=== PATIENT | male | born 1980 | race Caucasian/White ===

== ENCOUNTER 2021-03-08 02:06 | Emergency (ER) | payer OTHER, SELFPAY ==
--- NOTE | 2021-03-08 | ECG_ITS ---
Test Reason : CHEST PAIN Blood Pressure : / mmHG Vent. Rate : 090 BPM Atrial Rate : 090 BPM P-R Int : 140 ms QRS Dur : 096 ms QT Int : 336 ms P-R-T Axes : 065 -56 051 degrees QTc Int : 411 ms Normal sinus rhythm Incomplete right bundle branch block Left anterior fascicular block Abnormal ECG No previous ECGs available Referred By: Thalia Palacios Electronically Signed By:MADISON ROQUE
--- NOTE | ~2021-03-08 | XR_ITS ---
EXAMINATION: XR FOREARM, LEFT CLINICAL INFORMATION: left forearm abscess after iv cocaine injection, rule out fb COMPARISON: None TECHNIQUE: AP and lateral views of the left forearm were obtained. FINDINGS: The bones and soft tissues are normal. There is no radiopaque foreign body. There is no air in the soft tissues. No fracture. Imaged portions of the elbow and wrist are unremarkable. XR/XR forearm LT 2V IMPRESSION: Normal left forearm. There is no radiopaque foreign body.
[2021-03-08 02:15] VITALS: BP 118/70; PULSE 90; O2SAT 98
[2021-03-08 02:16] VITALS: BP 122/77; PULSE 80; RESP 20; TEMP 37; O2SAT 97; BMI 25.0
--- NOTE | 2021-03-08 02:17 | ED.SKABFB ---
HPI - Skin/Abscess/Foreign Bdy General Chief complaint: Skin/Abscess/Foreign Body Stated complaint: L ARM WOUND Time Seen by Provider: 03/08/21 02:14 Source: patient and EMS Mode of arrival: EMS Limitations: no limitations History of Present Illness HPI narrative: 40 years old male homeless, IV drug abuser, came in for evaluation of left forearm abscess after injecting IV cocaine 2 days ago. Patient declined any subjective fever, no chills. Related Data Previous Rx's Medication Instructions Recorded doxycycline hyclate 100 mg tablet 100 mg PO BID #20 tab 03/08/21 Allergies Allergy/AdvReac Type Severity Reaction Status Date / Time No Known Allergies Allergy Unverified 03/24/20 15:07 Review of Systems Review of Systems: All other systems are reviewed and are negative Constitutional: Reports as per HPI and Reports no additional constitutional complaints Eyes: Reports as per HPI and Reports no additional eye complaints Reports system reviewed and no additional complaints, except as documented Cardiovascular: Reports as per HPI and Reports no additional cardiovascular complaints Respiratory: Reports as per HPI and Reports no additional respiratory complaints Gastrointestinal: Reports as per HPI and Reports no additional gastrointestinal complaints Genitourinary: Reports no additional female genitourinary complaints Musculoskeletal: Reports no additional musculoskeletal complaints Skin/Breast: Reports system reviewed and no additional complaints, except as docu Psychiatric: Reports no additional psychiatric complaints Endocrine: Reports no additional endocrine complaints Hematologic/Lymphatic: Reports no additional hematologic/lymphatic complaints Allergic/Immunologic: Reports no additional allergic/immunologic complaints Reports system reviewed and no additional complaints, except as documented and Reports Abnormal speech present. [facility] Past Medical History Medical History (Updated 03/08/21 @ 02:50 by Thalia Palacios MD) Drug abuse Social History Social History Advance Directives: No Advance Directives Information Provided: No Physical Exam Vital Signs: Vital Signs: Last Vital Signs Temp 98.6 F 03/08/21 02:16 Pulse 80 03/08/21 02:16 Resp 20 03/08/21 02:16 BP 122/77 03/08/21 02:16 Pulse Ox 97 03/08/21 02:16 Body Mass Index 25.0 Vital signs have been reviewed as appeared to be correct. Blood pressure normal. Heart rate normal. Respiration rate normal. Temperature normal. Oxygen saturation normal. Appearance: Alert. Oriented X3. No acute distress. Head: Normal external exam. Normocephalic. Atraumatic. No Cho signs noted. No raccoon eyes noted Eyes: PERRLA. EOMI. Conjunctiva and sclera normal. Eyelids normal. ENT: TM's Normal. Pharynx normal. Uvula midline. Moist mucous membranes. No trismus noted. No drooling noted. No muffled voice noted. Neck: Normal inspection. Neck supple. FROM. No adenopathy. Thyroid Normal. No meningeal signs. No neck mass noted. CVS: Normal heart rate and rhythm. Heart sound normal. No murmurs noted. Pulses normal throughout. Respiratory: No respiratory distress. Painless inspiration. Breath sounds normal. No wheezes/rales/rhonchi noted. Chest nontender. No accessory muscle usage noted or decreased air movement noted. Abdomen: Soft and nontender. Bowel sounds normal in all 4 quadrants. No distention noted. No organomegaly noted. No visible injury noted. Back: No CVA tenderness. Full range of motion noted. Skin: Skin warm and dry. Normal skin color. Normal skin turgor. No rashes/lesions/lacerations noted. Extremities: Patient normally is right-handed, 2 x 2 area of fluctuation on the left forearm, upper part on the ulnar side surrounded by small area of erythema, and redness. Neuro: Oriented X 3. Cranial nerve exam: II-XII are grossly intact No motor deficit. No sensory deficit. Reflexes normal. Course Course Course Narrative: Assessment and plan. 40-year-old male history of IV drug abuser came in with left forearm small abscess, patient do not meet criteria for sepsis, patient has no place to go requesting to be hospitalized but unfortunately patient do not meet criteria for hospitalization or sepsis, I spoke with the patient about the importance of having the abscess I &D. patient adamantly refusing the I&D and would like to give antibiotic trial chance. Will start the patient on doxycycline, and provide the patient with list of long-term and detox places. Reevaluation(s) Reevaluation #1: Patient changes mind and willing to open the abscess, after injecting local anesthesia and small incision was done at abscess site he changes mind again does not want me to continue, patient would like to stay till morning because he has no place to go, patient now complaining of multiple complaints including chest pain, patient had EKG which showed no ST-T changes. Reevaluation #2: Patient is not complying with staff instruction, using abusive language, I had security personal at the bedside didn't feel safe with the patient's behavior, patient is refusing drawing blood and troponin claiming that he has a difficult IV access and not willing for the staff or me to look for IV to draw the blood. MDM - Skin/Abscess/Foreign Bdy Imaging Data Left forearm x-ray: Radiologist's impression: No foreign bodies, no osteomyelitis. ECG Data Interpretation: Normal sinus rhythm, 90 beats per minutes, left axis deviation, incomplete right bundle branch block, no acute ST-T changes. Discharge Plan Discharge Clinical Impression: Abscess of skin or subcutaneous tissue Qualifiers: Site of cutaneous abscess: extremity Site of cutaneous abscess of extremity: upper extremity Laterality: left Qualified Code(s): L02.414 - Cutaneous abscess of left upper limb Cellulitis Qualifiers: Site of cellulitis: extremity Site of cellulitis of extremity: upper extremity Laterality: left Qualified Code(s): L03.114 - Cellulitis of left upper limb Patient Disposition: Home, Self-Care Instructions: Abscess (ED) Additional Instructions: Seek immediate medical attention if develop any fever, chills, no improvement and the left forearm infection, avoid injecting IV drugs. Prescriptions: New doxycycline hyclate 100 mg tablet 100 mg PO BID Qty: 20 RF: 0 Interventions: ED Discharge Assessment Last Done: 03/08/21 03:48
[2021-03-08] MEDS: Lidocaine HCl 1 % MPF 5 ML VIAL SUBCUT (02:23)
--- NOTE | 2021-03-08 03:53 | PC.NURSE ---
Pt has a abscess to the left upper arm, when the provider saw the pt he mentioned that he was homeless and used herion yesterday, yet pt eyes are red, pt falling asleep. pt states that he has not slept in days. pt was trying to delay the procedure due to he wanted to sleep longer. the provider was very generous and allowed the pt to void, get some rest and pt insisted that he is treated with his antibx first and would not allow the provider to administer the lidocain. antibx given and then the pt states he was not ready yet and needed to sleep more. pt was given orange juice, warm blanket, teaching on the reason his arm was in pain and the need to have it drained. Pt was moving his legs and arms so security was called at the request of the provider. pt refused any more injections with the lidocaine and told the provider to just make the incision. pt then began to move around and the provider and nurse where in danger of being stuck. pt told if he didnt sit still then we could not proceed. pt states that he did not want to proceed. procedure stopped and ekg taken due to pt using drugs. pt was discharged and told he was going to be given a list of detox and shelters. pt belonging given back to him. Security did review the bags contents on arrival due to ems stated they saw needles.
== END 2021-03-08 03:30 | disposition home or self-care (01) ==
LOC: HO.ED 03:11
PROVIDERS: Emergency Provider Emergency Medicine
DX: L02.414 Cutaneous abscess of left upper limb (principal); L03.114 Cellulitis of left upper limb; F19.10 Other psychoactive substance abuse, uncomplicated
CPT/HCPCS: 73090; 93005; 99283

== ENCOUNTER → 2021-10-23 11:36 | Outpatient (REF) | payer OTHER, SELFPAY ==
--- NOTE | 2021-10-23 11:42 | ECG_ITS ---
Test Reason : METHADONE, QTC PROLONG Blood Pressure : / mmHG Vent. Rate : 066 BPM Atrial Rate : 066 BPM P-R Int : 140 ms QRS Dur : 092 ms QT Int : 408 ms P-R-T Axes : 068 -58 044 degrees QTc Int : 427 ms Normal sinus rhythm Left anterior fascicular block Abnormal ECG When compared with ECG of 08-MAR-2021 03:41, Incomplete right bundle branch block is no longer Present Referred By: Judy Montejo Electronically Signed By:MURRAY DAWKINS MD
== END ==
LOC: HO.CARD 11:36
PROVIDERS: Visit Provider Family Medicine
DX: Z79.899 Other long term (current) drug therapy (principal)
CPT/HCPCS: 93005

== ENCOUNTER 2023-01-08 11:44 | Emergency (ER) | payer MEDICAID, SELFPAY ==
[2023-01-08 11:52] VITALS: BP 147/88; PULSE 77; RESP 16; TEMP 36.6; O2SAT 96; BMI 31.2
--- NOTE | 2023-01-08 11:52 | ED.GENADULT ---
HPI - General Adult General Chief complaint: General Medical Stated complaint: Needs methadone dose Time Seen by Provider: 01/08/23 11:57 Source: patient, RN notes reviewed and old records reviewed Mode of arrival: ambulatory History of Present Illness HPI narrative: 42-year-old male with past medical history of substance abuse currently on methadone presenting to ED requesting methadone dose as clinic is closed today due to holiday. Patient states he obtains 13 doses of his methadone from the clinic, last dose taken yesterday, take 40 mg daily. Presented to ED with dated/labeled bottles. Denies symptoms at present, denies SI/HI Onset (ago): hour(s) Related Data Previous Rx's Medication Instructions Recorded doxycycline hyclate 100 mg tablet 100 mg PO BID #20 tabs 03/08/21 Allergies Allergy/AdvReac Type Severity Reaction Status Date / Time No Known Allergies Allergy Unverified 01/08/23 11:55 Review of Systems Review of Systems: Constitutional:No Fever, No Chills ENT/Mouth: No Ear Pain, No Nasal Congestion,No sore throat Cardiovascular: No Chest Pain, No SOB Respiratory: No Cough, No Wheezing Gastrointestinal: No Nausea, No Vomiting, No Diarrhea, No Constipation, No Abdominal pain Genitourinary: No Dysuria, No Urinary Frequency, No Hematuria Musculoskeletal: No joint pain, No Myalgias, No Joint Swelling Skin: No Skin Lesions, No rash Neuro: No Weakness Psych: No SI/HI Yes all other systems are reviewed and are negative Constitutional: Constitutional: Reports as per [facility] Past Medical History Attestation statement: The following information was validated with the patient. Source: old records reviewed Medical History Drug abuse Social History Social History Advance Directives: No Advance Directives Information Provided: No Physical Exam ED Vital Signs: BMI result Body Mass Index 31.2 Const General: cooperative, healthy appearing and no acute distress Orientation/consciousness: patient oriented x3 Limitations: no limitations HENMT Head: Yes normal to inspection and Yes atraumatic Ears: hearing grossly normal bilaterally General nose exam: Normal external nose present Face and sinus: Yes normal facial exam Eyes General: appearance normal, both eyes and all related structures EOM: EOMs intact bilaterally Neck Neck: Yes normal visual inspection and Yes no meningeal signs Resp Effort & Inspection: normal respiratory effort and no respiratory distress Cardio Rate: regular rate Skin Rashes: no rashes Wounds: no wounds Neuro General: patient oriented x3, tone normal and no meningeal signs Gait exam (Neuro): Normal gait present Extrem General: Yes normal to inspection Medications Administered Discontinued Medications Generic Name Dose Route Start Last Admin Trade Name Ashley PRN Reason Stop Dose Admin Methadone HCl 40 mg 01/08/23 11:58 01/08/23 12:12 Methadone Hcl 20 Mg/2 Ml Oral.Conc PO 01/08/23 11:59 40 mg ONCE ONE Administration Medical Decision Making Medical Decision Making MDM Narrative: 42-year-old male with past medical history of substance abuse currently on methadone presenting to ED requesting methadone dose as clinic is closed today due to holiday. On exam vital signs stable, and, nontoxic appearing. Patient presented to ED with 13 labeled bottles with last dose being yesterday, 40 mg. Will give dose of 40 mg of methadone today as well as last dose letter, patient will follow-up in clinic tomorrow Results discussed with patient including worrisome signs and symptoms and strict return precautions, and when to return to the emergency department. They verbalized understanding and feel safe for discharge at this time. Differential Diagnosis Differential Diagnoses: The differential diagnosis associated with the presentation includes As above External Record Review External record reviewed: Inpatient record, Office record, Outpatient record, Prior outpatient labs, Prior outpatient radiology, Primary care record and Outside ED record Tests considered The following testing was considered but not selected: As above Discharge Plan Discharge Clinical Impression: Medication refill Patient Disposition: Home, Self-Care Instructions: Medicine Refill (ED) Additional Instructions: please follow up in the clinic tomorrow for remaining doses of your methadone Prescriptions: No Action doxycycline hyclate 100 mg tablet 100 mg PO BID Qty: 20 0RF Referrals: Physician,None [Physician] - 2 days Interventions: ED Discharge Assessment Last Done: 01/08/23 12:19 Discharge Date/Time: 01/08/23 12:20
== END 2023-01-08 12:20 | disposition home or self-care (01) ==
PROVIDERS: Emergency Provider Emergency Medicine Emergency Medical Services
DX: F19.10 Other psychoactive substance abuse, uncomplicated (principal)
CPT/HCPCS: 99282; 99283

== ENCOUNTER 2023-02-19 15:43 | Outpatient (REF) | payer MEDICAID, SELFPAY ==
[2023-02-19 17:22] LABS: MANUAL DIFF FLAG NO
[2023-02-19 17:29] LABS: Basophils Percent Auto 0.5 % (0-2); Eosinophils Absolute Auto 0.3 X10*3/uL (0.0-0.4); Eosinophils Percent Auto 3.2 % (0-4); Hematocrit 42.7 % (42.0-52.0); Hemoglobin 14.3 g/dl (14.0-18.0); Imm Gran Abs Auto 0.02 X10*3/uL (0.00-0.03); Imm Gran Pct Auto 0.2 % (0.0-0.4); Lymphocytes Absolute Auto 2.4 X10*3/uL (1.2-4.9); Lymphocytes Percent Auto 26.8 % (20-40); Mean Corpuscular HGB Conc 33.5 g/dl (31.0-36.0); Mean Corpuscular Hemoglobin 28.9 pg (27.0-33.0); Mean Corpuscular Volume 86.4 fL (80.0-98.0); Mean Platelet Volume 10.2 fL (9.4-12.4); Monocytes Absolute Auto 0.6 X10*3/uL (0.1-1.2); Monocytes Percent Auto 6.7 % (2-11); Neutrophils Absolute Auto 5.5 x10*3/uL (2.0-8.3); Neutrophils Percent Auto 62.6 % (45-73); Platelet Count 192 X10*3/uL (160-400); Red Blood Count 4.94 X10*6/uL (4.60-5.80); Red Cell Distribution Width 12.4 % (11.0-16.0); White Blood Count 8.8 X10*3/uL (4.8-10.8)
[2023-02-19 17:36] LABS: D Dimer High Sensitivity 186 NG/ML
[2023-02-19 17:53] LABS: Alanine Aminotransferase 56 U/L (0-40); Albumin Level 3.7 g/dL (3.5-5.0); Alkaline Phosphatase 70 U/L (39-117); Anion Gap 13 (12-20); Aspartate Amino Transferase 80 U/L (5-37); Bilirubin Total 0.6 mg/dL (0.0-1.0); Blood Urea Nitrogen 9 mg/dL (9-16); Calcium 9.2 mg/dL (8.4-10.2); Carbon Dioxide 28 mmol/L (22-29); Chloride 103 mmol/L (96-108); Estimated Glomerular Filt Rate > 60; Glucose Random 100 mg/dL (60-115); Potassium 3.7 mmol/L (3.3-5.1); Sodium 140 mmol/L (135-145); Total Protein 6.8 g/dL (6.5-8.0)
[2023-02-20 03:45] LABS: ~HepC Num1 13.13 S/CO (0.00-0.79); ~Hepatitis C Antibody Reactive (Nonreactive)
== END 2023-02-19 15:44 | disposition home or self-care (01) ==
LOC: HO.HHCL 15:43
PROVIDERS: Visit Provider General Practice
DX: B18.2 Chronic viral hepatitis C (principal); M79.89 Other specified soft tissue disorders; R23.8 Other skin changes
CPT/HCPCS: 36415; 80053; 85025; 85379; 86803

== ENCOUNTER 2023-04-03 18:23 | Outpatient (REF) | payer MEDICAID, SELFPAY | END 2023-04-03 18:24 | disposition home or self-care (01) | LOC: HO.HHCLNP 18:23 | PROVIDERS: Visit Provider Emergency Medicine | DX: L02.412 Cutaneous abscess of left axilla (principal) | CPT/HCPCS: 87070; 87073; 87077; 87186; 87205 ==

== ENCOUNTER 2024-01-26 05:01 | Emergency (ER) | payer MEDICAID, SELFPAY ==
--- NOTE | 2024-01-26 05:05 | ED_ITS ---
HPI - Overdose General Chief Complaint: Overdose Stated Complaint: OD Time Seen by Provider: 01/26/24 05:01 Source: patient and old records reviewed Mode of arrival: EMS Limitations: other (poor historian) History of Present Illness ED Provider: CLAU GUTIÉRREZ Narrative: 43 yo male with PMH of opiate use disorder just seen here and dosed with methadone 40mg on 01/08. He was found overdosed with agonal respirations and bagged by Fire given 4mg IN. He was awake and alert and oriented with EMS x 3. He initially stated it was a seizure but then when I told him we dosed him with methadone on January 08 he started to calm down and states he will stay for a little bit take narcan to go. He denies SI. He does not want SUDE eval of detox. 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) How Overdose Was Discovered: other (girlfriend called 911?) Context: Accidental Overdose: uncertain what happened Treatments Prior to Arrival: narcan (4mg IN) Related Data Previous Rx's ?Medication ?Instructions ?Recorded doxycycline hyclate 100 mg tablet 100 mg PO BID #20 tabs 03/08/21 cephalexin 500 mg capsule 500 mg PO QID 7 days #28 caps 01/26/24 doxycycline hyclate 100 mg capsule 100 mg PO BID 7 days #14 caps 01/26/24 Allergies Allergy/AdvReac Type Severity Reaction Status Date / Time No Known Allergies Allergy Verified 01/26/24 05:13 Review of Systems Review of Systems: ROS unable to be obtained due to patient not being cooperative fully [facility] Past Medical History Attestation statement: The following information was validated with the patient. Source: old records reviewed Medical History Drug abuse Social History Social History (Updated 01/26/24 @ 05:13 by Mary Ann Kirkland DO) Patient Tobacco Use Status: Current someday Tobacco user Substance Use Type: Opiates Advance Directives: No Advance Directives Information Provided: No Physical Exam Vital Signs: Vital Signs: Last Vital Signs Temp 97.8 F 01/26/24 05:11 Pulse 88 01/26/24 05:11 Resp 16 01/26/24 05:11 BP 132/85 01/26/24 05:11 Pulse Ox 97 07/21/24 05:11 O2 Del Method Room Air 01/26/24 05:11 BMI result Body Mass Index 27.5 Appearance: Alert. Oriented X3. No acute distress. yawning, states he is cold Eyes: Pupils equal, round and reactive to light. dilated ENT: Pharynx normal. atraumatic Neck: Normal inspection. Neck supple. CVS: Normal heart rate and rhythm. Pulses normal. Respiratory: No respiratory distress. Breath sounds normal. Abdomen: Soft and non-tender. Skin: Skin warm and dry. Normal skin color. Extremities: No lower extremity edema. anterior shins bilateral mild erythema mild warmth no crepitus no fluctuance not circumferential no track ferrer noted no open wounds or track ferrer, has healed linear scrape R anterior llanos Neuro: Oriented X 3. No motor deficit. No sensory deficit. Course Course Course Narrative: observed for 1 hour wants to leave stable for DC Reevaluation(s) Reevaluation #1: on discharge asked me to look at his legs and now that he is more awake he wants juice on both legs mild erythema and warmth no crepitus no fluctuance. will start on cephelaxin and doxy he only wants filled at [facility] aware it will not be open until tomorrow Medications Administered Discontinued Medications Generic Name Dose Route Start Last Admin Trade Name Ashley PRN Reason Stop Dose Admin Cephalexin HCl 500 mg 01/26/24 06:14 01/26/24 06:18 Cephalexin 500 Mg Capsule PO 01/26/24 06:15 500 mg ONCE ONE Administration Doxycycline Monohydrate 100 mg 01/26/24 06:14 01/26/24 06:18 Doxycycline Monohydrate 100 Mg Capsule PO 01/26/24 06:15 100 mg ONCE ONE Administration Naloxone HCl 8 mg 01/26/24 05:09 01/26/24 06:18 Naloxone Hcl Nasal Take Home 4 Mg [place] NOSTRILALT 01/26/24 05:10 8 mg ONCE ONE Administration Medical Decision Making Medical Decision Making [facility] Narrative: 43 yo male with PMH of opiate use disorder here with c/o overdose given narcan by EMS he refuses SUDE eval or detox agrees to narcan - no labs or EKG. He has no signs of head trauma. He agrees to stay for a little bit though I anticipate he might try to walk out AMA. He has no signs of trauma. I offered assistance given we just dosed him with methadone but he is refusing all help at this time. He is awake alert and oriented x 3. No SI. Mild cellulitis on both shins on arrival he isn't really happy to be here may change his mind about treatments area is amenable to oral antibiotics. Differential Diagnosis Differential Diagnoses: The differential diagnosis associated with the presentation includes opiate use disorder with accidental overdose cellulitis Admission/Observation Consideration of admission/observation: Escalation of care including admission/observation considered no need for repeat narcan he is stable for DC Independent Historian Clinical information obtained from an independent historian. History obtained from or confirmed by: EMS External Record Review External record reviewed: Inpatient record Prescription Management I considered prescription management with: Antibiotic and Other (narcan to go) Discharge Plan Discharge Clinical Impression: Accidental overdose, Cellulitis Patient Disposition: Home, Self-Care Instructions: Cellulitis (ED), Adult Overdose (ED) Additional Instructions: carry narcan with you at all times if you decide you need help we have ways to assist you in your recovery you can return at any time finish antibiotics return for worsening swelling or any other concerns. Prescriptions: New doxycycline hyclate 100 mg capsule 100 mg PO BID 7 Days Qty: 14 0RF cephalexin 500 mg capsule 500 mg PO QID 7 Days Qty: 28 0RF No Action doxycycline hyclate 100 mg tablet 100 mg PO BID Qty: 20 0RF Print Language: Swedish
[2024-01-26 05:11] VITALS: BP 132/85; BP 148/104; PULSE 77; PULSE 88; RESP 16; TEMP 36.6; O2SAT 97; BMI 27.5
--- NOTE | 2024-01-26 05:13 | PC.NURSE ---
pt refusing to change into hospital clothes. pt thoroughly searched by security no weapons or smoking contraband found on pt. pt resting comfortably in stretcher resp even and unlabored axox4. per MD pt to be observed and d/c with take home narcan. pt refusing detox.
[2024-01-26] MEDS: cephALEXin 500 MG CAPSULE PO (06:18)
[2024-01-26] MEDS: Naloxone HCl Nasal TAKE HOME 4 MG SPRAY 8 MG NOSTRILALT (06:18)
[2024-01-26] MEDS: Doxycycline Monohydrate 100 MG CAPSULE PO (06:18)
[2024-01-26 06:37] VITALS: BP 132/85; PULSE 88; RESP 16; TEMP 36.6; O2SAT 97
== END 2024-01-26 06:38 | disposition home or self-care (01) ==
PROVIDERS: Emergency Provider Emergency Medicine
DX: T40.2X1A Poisoning by other opioids, accidental (unintentional), initial encounter (principal); L03.116 Cellulitis of left lower limb; L03.115 Cellulitis of right lower limb; Y92.89 Other specified places as the place of occurrence of the external cause; F17.200 Nicotine dependence, unspecified, uncomplicated; Z79.899 Other long term (current) drug therapy
CPT/HCPCS: 99282; 99284

== ENCOUNTER 2024-04-03 08:19 | Emergency (ER) | payer MEDICAID, SELFPAY ==
[2024-04-03 08:21] VITALS: BP 110/68; PULSE 100; RESP 20; TEMP 36.9; O2SAT 97; BMI 25.2
--- NOTE | 2024-04-03 09:22 | ED_ITS ---
HPI - Back Pain/Injury General Chief Complaint: Back Pain/Injury Stated Complaint: back pain Time Seen by Provider: 04/03/24 09:00 Source: patient Mode of arrival: ambulatory Limitations: no limitations History of Present Illness HPI Narrative: Patient is a 43-year-old male presents emergency department for evaluation of right lower back pain radiating diffusely down through his leg. He denies associated numbness tingling or weakness to the leg. 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 He would like a referral to see a back specialist here at [place] as this is where he is currently residing. He does admit that he walks as he is currently homeless and this is aggravating his pain. He has been taking Tylenol, ibuprofen, and various topical creams without much improvement. Does report he gets minimal relief from applying heat to the area. He denies any falls or recent injury. Denies fevers, chills, burning with micturition, urinary frequency/urgency/hesitancy, bladder or bowel dysfunction, numbness or tingling of the perineum or bilateral legs. Denies any recent surgical procedures, any known immune compromising conditions, personal history of cancer, or recent IV drug usage. MD elicited complaint: back pain Related Data Previous Rx's ?Medication ?Instructions ?Recorded doxycycline hyclate 100 mg tablet 100 mg PO BID #20 tabs 03/08/21 cephalexin 500 mg capsule 500 mg PO QID 7 days #28 caps 01/26/24 doxycycline hyclate 100 mg capsule 100 mg PO BID 7 days #14 caps 01/26/24 cyclobenzaprine 10 mg tablet 10 mg PO TID PRN muscle spasm #14 04/03/24 tabs Allergies Allergy/AdvReac Type Severity Reaction Status Date / Time No Known Allergies Allergy Verified 04/03/24 08:27 Review of Systems Review of Systems: Yes all other systems are reviewed and are negative PMFSH Past Medical History Attestation statement: The following information was validated with the patient. Source: old records reviewed Medical History Drug abuse Social History Social History (Updated 01/26/24 @ 05:13 by Mary Ann Kirkland DO) Patient Tobacco Use Status: Current someday Tobacco user Substance Use Type: Opiates Advance Directives: No Advance Directives Information Provided: Yes Do you have a plan to hurt others: No Plan Physical Exam Vital Signs: Vital Signs: Last Vital Signs Temp 98.0 F 04/03/24 10:43 Pulse 98 04/03/24 10:43 Resp 18 04/03/24 10:43 BP 112/62 04/03/24 10:43 Pulse Ox 97 04/03/24 10:43 O2 Del Method Room Air 04/03/24 10:43 BMI result Body Mass Index 25.2 Appearance: Alert.?Oriented to person, place and time. No acute distress.?Normal affect. Eyes: Pupils equal, round and reactive to light.? ENT: Pharynx normal.?? Neck: Normal inspection.? Neck supple.?? CVS: Heart sounds normal. Normal heart rate and rhythm.? Pulses normal; bilateral radial pulses 2+, bilateral posterior tibial/dorsalis pedis pulses 2+.? Respiratory: No respiratory distress.? Lung sounds clear to auscultation bilaterally?? Abdomen: Soft and non-tender. Normoactive bowel sounds. No pulsatile mass.?? Skin: Skin warm and dry.? Normal skin color.? Extremities: No lower extremity edema.? No calf ttp? Back: + mild paraspinal muscular tenderness from lumbar region to coccyx. No CVA tenderness. No midline spinal tenderness, step-off's, or deformity. Full ROM intact in bilateral lower extremities. Straight leg test positive on right; Straight leg test positive on left. No rashes, lesions, areas of induration or fluctuance, or signs of infection noted., Neuro: Moves all extremities spontaneously. 5/5 strength in hip extension/flexion, abduction, adduction. Sensation to light touch intact bilaterally. Patellar and Achilles reflex 2+ bilaterally. No ataxia, gait normal and steady.. No focal neuro deficits. Medications Administered Discontinued Medications Generic Name Dose Route Start Last Admin Trade Name Freq PRN Reason Stop Dose Admin Ketorolac Tromethamine 15 mg 04/03/24 09:37 04/03/24 10:40 Ketorolac Tromethamine 15 Mg/Ml Vial IM 04/03/24 09:38 15 mg ONCE ONE Administration Medical Decision Making Medical Decision Making MDM Narrative: Patient is a 43-year-old male presents emergency department for evaluation of right back pain with radiation to the leg as per HPI. He has a history of substance use disorder, reports he has not used ?in a few months?. On examination he has no midline tenderness upon palpation, no areas of fluctuance or induration or rashes. No focal neurological deficits, lower extremities are neurovascularly intact distally bilaterally. Has notable tenderness to the right paraspinal muscles of the lumbar region down to the coccyx on exam, Pain is most consistent with muscular pain, although cannot completely exclude herniated disc. Not consistent with spinal fracture, spinal infection, epidural abscess, AAA, epidural abscess, or dissection. No high risk past medical history including incontinence, fever, immunosuppression, recent surgery or lumbar puncture, coagulopathy, significant trauma, recent unintentional weight loss, pulsatile mass, history of cancer, history of TB, that would warrant MRI or CT. Not consistent with pyelonephritis, urinary tract infection, renal calculi, appendicitis, diverticulitis. On exam no concern for cauda equina syndrome. No imaging is currently indicated at this time. Plan for discharge home with prescription for cyclobenzaprine, and follow-up with primary care provider, and patient agreed with plan. Differential Diagnosis Differential Diagnoses: The differential diagnosis associated with the presentation includes ( see narrative above) Admission/Observation Consideration of admission/observation: Escalation of care including admission/observation considered ( see narrative above) External Record Review External record reviewed: Outpatient record Tests considered The following testing was considered but not selected: See narrative above, defer CT/MRI of the back Prescription Management I considered prescription management with: Pain Medication Social Determinants Patient?s care significantly limited by Social Determinants of Health including: Inadequate housing Discharge Plan Discharge Clinical Impression: Lumbar radiculopathy Patient Disposition: Home, Self-Care Instructions: Lumbar Radiculopathy (ED), Lower Back Exercises (ED) Additional Instructions: You can take ibuprofen 200 mg, 3 tablets (600mg) every 6-8 hours as needed for pain, in addition to Tylenol 500 mg, 2 tablets (1,000mg) every 4-6 hours as needed for pain, but not to exceed 3 doses daily (3,000mg).? For pain that is unrelieved by ibuprofen/Tylenol you may take cyclobenzaprine/Flexeril. This is a muscle relaxant that was sent to your pharmacy. This medication may make you drowsy. You should not drive, drink alcohol, or work while taking this medication. You may consider following up with your primary care doctor and/or returning to emergency department any new or worsening symptoms or concerns. You have been provided with contact information for the back specialist associated with this hospital as per your request. Prescriptions: New cyclobenzaprine 10 mg tablet 10 mg PO TID PRN (Reason: muscle spasm) Qty: 14 0RF No Action doxycycline hyclate 100 mg tablet 100 mg PO BID Qty: 20 0RF doxycycline hyclate 100 mg capsule 100 mg PO BID 7 Days Qty: 14 0RF cephalexin 500 mg capsule 500 mg PO QID 7 Days Qty: 28 0RF Referrals: Shawn Briceno MD, PhD [Physician] - Physician,None [Primary Care Provider] - Interventions: ED Discharge Assessment Last Done: 04/03/24 10:43 Discharge Date/Time: 04/03/24 10:44 Print Language: Setswana
[2024-04-03] MEDS: Ketorolac Tromethamine 15 MG/ML VIAL IM (10:40)
[2024-04-03 10:43] VITALS: BP 112/62; PULSE 98; RESP 18; TEMP 36.7; O2SAT 97
== END 2024-04-03 10:44 | disposition home or self-care (01) ==
PROVIDERS: Emergency Provider Student in an Organized Health Care Education/Training Program
DX: M54.16 Radiculopathy, lumbar region (principal)
CPT/HCPCS: 96372; 99283; 99284; J1885

== ENCOUNTER 2024-05-28 20:23 | Emergency (ER) | payer MEDICAID, SELFPAY ==
--- NOTE | ~2024-05-28 | US_ITS ---
EXAMINATION: US TRIPLEX LOWER EXTREMITY, BILATERAL CLINICAL INFORMATION: Bilateral leg redness COMPARISON: None available. TECHNIQUE: Color-flow triplex imaging with spectral analysis and compression Doppler were performed on the bilateral lower extremities. FINDINGS: Respiratory variation, normal compression and augmented flow are noted throughout the bilateral lower extremities. The visualized common femoral vein, superficial femoral vein, profunda femoral vein, popliteal vein and midcalf peroneal and posterior tibial venous segments show no evidence of deep venous thrombosis bilaterally. There is no Thomas's cyst. Nonspecific left groin lymph node measuring 1.4 x 0.7 x 1.1 cm. US/US venous duplex LE BI IMPRESSION: No evidence of deep venous thrombosis involving the bilateral lower extremities. Left groin lymph node measuring 1.4 x 0.7 x 1.1 cm. Electronically signed by: Ernst Lopes MD 05/28/2024 09:40 PM [facility]
--- NOTE | ~2024-05-28 | XR_ITS ---
EXAMINATION: XR TIBIA/FIBULA, LEFT CLINICAL INFORMATION: Question osteomyelitis. COMPARISON: None. TECHNIQUE: AP and lateral views of the left tibia and fibula. FINDINGS: No acute fracture or dislocation. No periosteal reaction or cortical erosion. No abnormal soft tissue calcification. XR/XR tibia fibula LT 2V IMPRESSION: Unremarkable examination. Electronically signed by: González Bynum MD 05/28/2024 10:25 PM [facility] [place]
--- NOTE | ~2024-05-28 | XR_ITS ---
EXAMINATION: XR TIBIA AND FIBULA, RIGHT CLINICAL INFORMATION: Leg redness. Evaluate for osteomyelitis. COMPARISON: None available. TECHNIQUE: AP and lateral views of the right tibia and fibula were obtained. FINDINGS: No acute fracture or dislocation. No cortical erosion or periosteal reaction. No abnormal soft tissue calcification. XR/XR tibia fibula RT 2V IMPRESSION: Unremarkable examination. Electronically signed by: González Bynum MD 05/28/2024 10:26 PM [facility]
[2024-05-28 20:39] VITALS: BP 141/84; PULSE 98; RESP 20; TEMP 36.5; O2SAT 99; BMI 27.5
--- NOTE | 2024-05-28 20:44 | ED_ITS ---
HPI - General Adult General Chief complaint: Skin/Abscess/Foreign Body Stated complaint: left cellulitis/rt not as much Time Seen by Provider: 05/28/24 23:37 Source: patient Limitations: no limitations History of Present Illness ED Provider: Carole Michelle PA-C HPI narrative: 44-year-old male with a history of IV drug abuse presents with bilateral lower extremity redness and swelling of unclear duration. Patient readily admits to injecting into his legs, he has developed redness over anterior shins. He has open ulcerations, no drainage of pus from any of the sites. Denies fevers. Related Data Previous Rx's ?Medication ?Instructions ?Recorded doxycycline hyclate 100 mg tablet 100 mg PO BID #20 tabs 03/08/21 cephalexin 500 mg capsule 500 mg PO QID 7 days #28 caps 01/26/24 doxycycline hyclate 100 mg capsule 100 mg PO BID 7 days #14 caps 01/26/24 cyclobenzaprine 10 mg tablet 10 mg PO TID PRN muscle spasm #14 04/03/24 tabs cephalexin 500 mg capsule 500 mg PO QID #28 caps 05/28/24 sulfamethoxazole 800 1 tab PO BID #14 tabs 05/28/24 mg-trimethoprim 160 mg tablet (Bactrim DS) Allergies Allergy/AdvReac Type Severity Reaction Status Date / Time No Known Allergies Allergy Verified 05/28/24 20:40 Review of Systems 2 Review of Systems: Yes all other systems are reviewed and are negative Constitutional: Constitutional: Denies fatigue and Denies fever(s) Cardiovascular: Cardiovascular: Denies chest pain and Denies dyspnea Respiratory: Respiratory: Denies dyspnea Musculoskeletal: Musculoskeletal: Denies arthralgias and Denies joint swelling Integumentary/Breasts: Skin/Breast: Reports erythema, Reports skin pain and Reports wounds Endocrine: Endocrine: Denies fatigue PMFSH Past Medical History Attestation statement: The following information was validated with the patient. Medical History Drug abuse Social History Social History (Updated 01/26/24 @ 05:13 by Mary Ann Kirkland DO) Patient Tobacco Use Status: Current someday Tobacco user Smoked in Last 30 Days: Yes Use of substances other than those prescribed or required for medical reasons: Yes Substance Use Type: Crack/Cocaine Advance Directives: No Physical Exam ED Vital Signs: Vital Signs - 24 hr 05/28/24 20:39 05/28/24 23:37 05/28/24 23:51 Temperature 97.7 F 97.7 F 97.7 F Pulse Rate 98 85 85 Respiratory Rate 20 16 16 Blood Pressure 141/84 H 133/80 133/80 Pulse Oximetry 99 98 98 Oxygen Delivery Method Room Air Room Air Room Air BMI result Body Mass Index 27.5 Const Other: Awake, appears older than stated age Orientation/consciousness: patient oriented x3 Resp Other: nonlabored respirations Cardio Other: normal peripheral perfusion Skin Other: warm dry no rash Neuro General: patient oriented x3, no focal motor deficits and CN's II-XI intact bilaterally Extrem Other: erythema spans from ankle to just inferior to the knees bilaterally, there are some scabbed over lesions consistent with MRSA, no regions of induration or fluctuance, no active purulence from any of the sites. Psych Other: Somewhat hostile and belligerent Course Course Course Narrative: RME: 44-year-old male presents to ED for bilateral leg redness. Patient is admitted to injecting his legs with drugs. Physical exam positive for bilateral leg erythema. X-ray labs ultrasound ordered. Medications Administered Discontinued Medications Generic Name Dose Route Start Last Admin Trade Name Freq PRN Reason Stop Dose Admin Cephalexin HCl 500 mg 05/28/24 23:39 05/28/24 23:49 Cephalexin 500 Mg Capsule PO 05/28/24 23:40 500 mg ONCE ONE Administration Trimethoprim/Sulfamethoxazole 1 tab 05/28/24 23:39 05/28/24 23:49 Sulfamethox/Trimeth 800/160 Tablet PO 05/28/24 23:40 1 tab ONCE ONE Administration Medical Decision Making Medical Decision Making [facility] Narrative: 44-year-old male with a history of IV drug abuse presents with bilateral lower extremity redness and swelling of unclear duration. Patient readily admits to injecting into his legs, he has developed redness over anterior shins. He has open ulcerations, no drainage of pus from any of the sites. Denies fevers. problem: IV drug abuse History: Per patient I have considered the following differential diagnoses: Cellulitis, purulent cellulitis, DVT, abscess , Osteomyelitis Plan: Patient has cellulitis, screening labs were obtained from triage, inflammatory markers are barely elevated, he does not have a leukocytosis. There was no reason why he can not be treated as an outpatient. Osteomyelitis was considered, x-rays obtained, no communication with the bone. DVT study unremarkable I have independently reviewed the following tests: Labs: No leukocytosis, not anemic, no electrolyte abnormality, inflammatory markers barely elevated Tib-fib right: XR/XR tibia fibula RT 2V IMPRESSION: Unremarkable examination. Electronically signed by: González Bynum MD 05/28/2024 10:26 PM EST RP Tib-fib left: XR/XR tibia fibula RT 2V IMPRESSION: Unremarkable examination. Electronically signed by: González Bynum MD 05/28/2024 10:26 PM EST RP doppler: US/US venous duplex LE BI IMPRESSION: No evidence of deep venous thrombosis involving the bilateral lower extremities. Left groin lymph node measuring 1.4 x 0.7 x 1.1 cm. Electronically signed by: Ernst Lopes MD 05/28/2024 09:40 PM EST RP Lab Data 05/28/24 21:23 05/28/24 21:23 Labs: Lab Results 05/28/24 Range/Units 21:23 WBC 11.5 H (4.8-10.8) X10*3/uL RBC 4.84 (4.60-5.80) X10*6/uL Hgb 14.4 (14.0-18.0) g/dl Hct 42.1 (42.0-52.0) % MCV 87.0 (80.0-98.0) fL MCH 29.8 (27.0-33.0) pg MCHC 34.2 (31.0-36.0) g/dl RDW 13.2 (11.0-16.0) % Plt Count 219 (160-400) X10*3/uL MPV 8.7 L (9.4-12.4) fL Immature Gran % (Auto) 0.3 (0.0-0.4) % Neut % (Auto) 67.1 (45-73) % Lymph % (Auto) 22.7 (20-40) % [place] % (Auto) 6.8 (2-11) % Eos % (Auto) 2.7 (0-4) % Baso % (Auto) 0.4 (0-2) % Lymph # (Auto) 2.6 (1.2-4.9) X10*3/uL [place] # (Auto) 0.8 (0.1-1.2) X10*3/uL Eos # (Auto) 0.3 (0.0-0.4) X10*3/uL Baso # (Auto) 0.1 (0.0-0.2) X10*3/uL Abs Immat Gran (auto) 0.03 (0.00-0.03) X10*3/uL Absolute Neuts (auto) 7.8 (2.0-8.3) x10*3/uL Absolute Nucleated RBC 0.000 (0.0-0.012) X10*3/uL Nucleated RBC % (auto) 0.0 (0.0-0.2) /100WBC ESR 8 (0-15) MM/HR Sodium 141 (135-145) mmol/L Potassium 4.4 (3.3-5.1) mmol/L Chloride 109 H (96-108) mmol/L Carbon Dioxide 23 (22-29) mmol/L Anion Gap 13 (12-20) BUN 10 (9-16) mg/dL Creatinine 0.79 (0.5-1.4) mg/dL Estim Creat Clear Calc 142.6 Estimated GFR > 60 Random Glucose 119 H (60-115) mg/dL Lactic Acid 0.9 (0.5-2.0) mmol/L Calcium 9.0 (8.4-10.2) mg/dL Total Bilirubin 0.6 (0.0-1.0) mg/dL AST 52 H (5-37) U/L ALT 49 H (0-40) U/L Alkaline Phosphatase 90 (39-117) U/L C-Reactive Protein 0.57 H (< or = 0.50) mg/dL Total Protein 7.4 (6.5-8.0) g/dL Albumin 3.7 (3.5-5.0) g/dL Discharge Plan Discharge Clinical Impression: Cellulitis Patient Disposition: Home, Self-Care Instructions: Cellulitis (ED) Additional Instructions: You were found to have cellulitis. See home care instructions. Use both antibiotics as directed, complete both prescriptions. Follow up with your Primary care provider as needed. Prescriptions: New cephalexin 500 mg capsule 500 mg PO QID Qty: 28 0RF sulfamethoxazole-trimethoprim [Bactrim DS] 800-160 mg tablet 1 tab PO BID Qty: 14 0RF No Action doxycycline hyclate 100 mg tablet 100 mg PO BID Qty: 20 0RF cyclobenzaprine 10 mg tablet 10 mg PO TID PRN (Reason: muscle spasm) Qty: 14 0RF doxycycline hyclate 100 mg capsule 100 mg PO BID 7 Days Qty: 14 0RF cephalexin 500 mg capsule 500 mg PO QID 7 Days Qty: 28 0RF Interventions: ED Discharge Assessment Last Done: 05/28/24 23:51 Discharge Date/Time: 05/28/24 23:52 Print Language: Japanese
[2024-05-28 21:34] LABS: MANUAL DIFF FLAG NO
[2024-05-28 21:35] LABS: Basophils Absolute Auto 0.1 X10*3/uL (0.0-0.2); Basophils Percent Auto 0.4 % (0-2); Eosinophils Absolute Auto 0.3 X10*3/uL (0.0-0.4); Eosinophils Percent Auto 2.7 % (0-4); Hematocrit 42.1 % (42.0-52.0); Hemoglobin 14.4 g/dl (14.0-18.0); Imm Gran Abs Auto 0.03 X10*3/uL (0.00-0.03); Imm Gran Pct Auto 0.3 % (0.0-0.4); Lymphocytes Absolute Auto 2.6 X10*3/uL (1.2-4.9); Lymphocytes Percent Auto 22.7 % (20-40); Mean Corpuscular HGB Conc 34.2 g/dl (31.0-36.0); Mean Corpuscular Hemoglobin 29.8 pg (27.0-33.0); Mean Platelet Volume 8.7 fL (9.4-12.4); Monocytes Absolute Auto 0.8 X10*3/uL (0.1-1.2); Monocytes Percent Auto 6.8 % (2-11); Neutrophils Absolute Auto 7.8 x10*3/uL (2.0-8.3); Neutrophils Percent Auto 67.1 % (45-73); Platelet Count 219 X10*3/uL (160-400); Red Blood Count 4.84 X10*6/uL (4.60-5.80); Red Cell Distribution Width 13.2 % (11.0-16.0); White Blood Count 11.5 X10*3/uL (4.8-10.8)
[2024-05-28 21:58] LABS: Lactic Acid 0.9 mmol/L (0.5-2.0)
[2024-05-28 22:02] LABS: Albumin Level 3.7 g/dL (3.5-5.0); Alkaline Phosphatase 90 U/L (39-117); Anion Gap 13 (12-20); Aspartate Amino Transferase 52 U/L (5-37); Bilirubin Total 0.6 mg/dL (0.0-1.0); Blood Urea Nitrogen 10 mg/dL (9-16); C Reactive Protein 0.57 mg/dL (< or = 0.50); Carbon Dioxide 23 mmol/L (22-29); Chloride 109 mmol/L (96-108); Creatinine Clr Calc Pharmacy 142.6; Estimated Glomerular Filt Rate > 60; Glucose Random 119 mg/dL (60-115); Potassium 4.4 mmol/L (3.3-5.1); Sodium 141 mmol/L (135-145); Total Protein 7.4 g/dL (6.5-8.0)
[2024-05-28 22:13] LABS: Alanine Aminotransferase 49 U/L (0-40)
[2024-05-28 22:57] LABS: Erythrocyte Sedimentation Rate 8 MM/HR (0-15)
--- NOTE | 2024-05-28 23:35 | PC.NURSE ---
Pt ambulatory to [facility]H from waiting room, assumed care of pt at this time. A&Ox3 skin pwd respirations even unlabored Endorsing ?cellulitis to LLE beginning yesterday. Denies fever. Imaging and labs resulted from [facility], awaiting primary provider eval, aware of plan of care.
[2024-05-28 23:37] VITALS: BP 133/80; PULSE 85; RESP 16; TEMP 36.5; O2SAT 98
--- NOTE | 2024-05-28 23:38 | PC.NURSE ---
Provider to bedside for primary eval.
[2024-05-28] MEDS: cephALEXin 500 MG CAPSULE PO (23:49)
[2024-05-28] MEDS: Sulfamethox/Trimeth 800/160 TABLET 1 TAB PO (23:49)
[2024-05-28 23:51] VITALS: BP 133/80; PULSE 85; RESP 16; TEMP 36.5; O2SAT 98
--- NOTE | 2024-05-28 23:51 | PC.NURSE ---
Pt medicated per MAR, cleared for dc home.
== END 2024-05-28 23:52 | disposition home or self-care (01) ==
PROVIDERS: Physician Assistant; Emergency Provider Emergency Medicine
DX: L03.115 Cellulitis of right lower limb (principal); L03.116 Cellulitis of left lower limb; R60.0 Localized edema; F17.210 Nicotine dependence, cigarettes, uncomplicated; Z79.899 Other long term (current) drug therapy; F11.10 Opioid abuse, uncomplicated
CPT/HCPCS: 36415; 73590; 80053; 83605; 85025; 85652; 86140; 87040; 93970; 99284

== ENCOUNTER 2024-06-19 12:15 | Emergency (ER) | payer MEDICAID, SELFPAY ==
[2024-06-19 12:26] VITALS: BP 132/90; BP 147/97; PULSE 75; PULSE 76; RESP 18; TEMP 36.4; O2SAT 97; O2SAT 99; BMI 23.7
== END 2024-06-19 12:59 | disposition left against medical advice (07) ==
PROVIDERS: Emergency Provider Student in an Organized Health Care Education/Training Program
DX: R40.4 Transient alteration of awareness (principal); Z53.21 Procedure and treatment not carried out due to patient leaving prior to being seen by health care provider
CPT/HCPCS: 99281

== ENCOUNTER → 2024-07-27 16:22 | Outpatient (BNV) | payer MEDICAID, SELFPAY | PROVIDERS: Visit Provider Specialist | DX: M54.50 Low back pain, unspecified (principal) | CPT/HCPCS: 72100 ==

== ENCOUNTER 2024-07-27 17:00 | Emergency (ER) | payer OTHER, MEDICAID, SELFPAY ==
--- NOTE | ~2024-07-27 | XR_ITS ---
CLINICAL HISTORY: pain 3 views lumbar spine Comparison: None Findings: Normal vertebral body alignment. No acute fractures or dislocation. No significant degenerative change. Moderate stool in the ascending colon. IMPRESSION: No acute findings. This document has been electronically signed by: Paz Morales MD on 07/27/2024 17:54:29
[2024-07-27 16:18] VITALS: BP 122/61; PULSE 95; RESP 18; TEMP 36.6; O2SAT 96; BMI 25.0
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
[2024-07-27 21:25] VITALS: BP 00/00; PULSE 0; RESP 0; TEMP -17.7; TEMP 0
== END 2024-07-27 21:26 | disposition home or self-care (01) ==
PROVIDERS: Emergency Provider Emergency Medicine Emergency Medical Services
DX: S39.012A Strain of muscle, fascia and tendon of lower back, initial encounter (principal); V47.0XXA Car driver injured in collision with fixed or stationary object in nontraffic accident, initial encounter; Y92.414 Local residential or business street as the place of occurrence of the external cause; Y93.9 Activity, unspecified; Y99.9 Unspecified external cause status
CPT/HCPCS: 72100; 99282; 99283

== ENCOUNTER 2024-09-19 21:03 | Emergency (ER) | payer MEDICAID, SELFPAY ==
[2024-09-19 21:06] VITALS: BMI 31.2
--- OUTSIDE RECORDS SUMMARY | 2024-09-19 21:27 | XMS_ITS | Encounter Summary ---
Author Organization [employer] Address [address] [place] [address] Care Team Providers Care Printing Supervisor Name Role Phone Unavailable Primary Care Provider Unavailabl e Encounter Details Date Type Department Care Team (Late st Contact Info) Description 09/18/2024 Population Health Risk Score On License Of [facility] (C[facility]) Department [address] [place] [address] Provider, Population Health Generic Social History Tobacco Use Types Packs/Day Years Used Date Smoking Tobacco: Never Passive Smoke Exposure: Never Smokeless Tobacco: Never Alcohol Use Standard Drinks/Week Comments Never 0 (1 standard drink = 0.6 oz pur e alcohol) Housing Stability Answer Date Recorded What is your housing situation today? I do not have housing (Staying with others, in a hotel, in a residential, living outside on the street, on a beach, in a car, or in a park 04/18/[address] you li ve. Do you have problems with any of the following? I am not sure 04/18/2023 Food Insecurity Answer Date Recorded Within the past 12 months, y ou worried that your food would run out before you got money to buy more: Often true 04/24/2023 Within the past 12 months,th e food you bought just didn't last and you didn't have enough money to get more: Often true Transportation Answer Date Recorded In the past 12 months, has l ack of transportation kept you from medical appts, meetings, work or from getting things needed for daily living? Yes, it has kept me from medical appointments or getting medications. 04/18/2023 Utilities Answer Date Recorded In the past 12 months, has t he electric, gas, oil or water company threatened to shut off services in your home? No 04/24/2023 Sex and Gender Information Value Date Recorded Sex Assigned at Male 05/07/2022 10:25 AM EDT Legal Sex Male 10:25 AM EDT Gender Identity Male 05/07/2022 10:25 AM EDT Sexual Orientation Don't know 05/07/2022 10 :25 AM EDT documented as of this encounter Plan of Treatment Not on file documented as of this encounter Visit Diagnoses Not on filedocumented in this encounter
--- OUTSIDE RECORDS SUMMARY | 2024-09-19 21:27 | XMS_ITS | Clinical Summary ---
Author Organization [facility] Address [address] [place] [address] Care Team Providers Care Relationship Assoc Name Role Phone Unavailable Primary Care Provider Unavailabl e Allergies No known active allergies Medications cloNIDine (Catapres) 0.1 MG tablet TAKE 1 TABLET BY MOUTH TWICE DAILY NEEDED FOR ANXIETY OR FOR SLEEP 3 Active OXcarbazepine (Trileptal) 150 MG tablet Take 150 mg by mouth 2 times daily. 3 Active HM ClearLax 17 GM/SCOOP powder TAKE 17 GM MIXED IN 8 OUNCES OF WATER ONCE DAILY NEEDED 3 Active chlorhexidine (Hibiclens) 4 % external liquid After using shampoo in shower, apply Hibiclens from neck down. Leave on skin for 2 minutes, and then wash off in shower. 236 mL 3 Active Active Problems Problem Noted Date Diagnosed Date Callus of foot 09/24/2023 Right foot pain 09/24/2023 Bilateral lower leg cellulitis 02/19/2023 Assessment & Plan (09/24/2023 2:43 PM EDT): Maintain area dry and clean I will star him on bactrim DS BID for 14 days Extensive counseling ED precautions done, if symptoms persist or worse got to the ED Assessment & Plan (02/19/2023 4:17 PM EDT): Bactrim and Keflex x 7 days To monitor for signs of progression or regression No clear signs of DVT, will obtain D dimer based on swelling If elevated, will have to arrange for transport to hospital for ED eval/stat DVT US followup in clinic if fevers, chills, spreading of redness occurs Encounters Date Type Department Care Team Description 09/18/2024 Population Health Risk Score [facility] (C3) [address] [place] [address] Provider, Population Health Generic 07/27/2024 Orders Only [facility] External Provider, [facility] from Last 3 Months Immunizations Name Administration Dates Next Due Pneumococcal Conjugate, Unspecified 10/01/2015 Pneumococcal Polysaccharide PPSV23 10/01/2015 Social History Tobacco Use Types Packs/Day Years Used Date Smoking Tobacco: Never Passive Smoke Exposure: Never Smokeless Tobacco: Never Tobacco Cessation:Counseling Given: Not Answered Alcohol Use Standard Drinks/Week Comments Never 0 (1 standard drink = 0.6 oz pur e alcohol) Housing Stability Answer Date Recorded What is your housing situation today? I do not have housing (Staying with others, in a hotel, in a long term, living outside on the street, on a [...] the past 12 months, has t he [employer], gas, oil or water company threatened to shut off services in your home? No 04/24/2023 Sex and Gender Information Value Date Recorded Sex Assigned at Male 05/07/2022 10:25 AM EDT Legal Sex Male 10:25 AM EDT Gender Identity Male 05/07/2022 10:25 AM EDT Sexual Orientation Don't know 05/07/2022 10 :25 AM EDT Last Filed Vital Signs Vital Sign Reading Time Taken Comments Blood Pressure 125/81 09/24/2023 1:49 PM EDT Pulse 73 09/24/2023 1:49 PM EDT Temperature 36.3 ??C (97.4 ??F) 09/24/2023 1:49 PM ED T Respiratory Rate 18 09/24/2023 1:49 PM EDT Oxygen Saturation 98% 09/24/2023 1:49 PM EDT Inhaled Oxygen Concentration - - Weight 99.3 kg (219 lb) 09/24/2023 1:49 PM EDT Height 188 cm (6' 2 ) 02/19/2023 3:27 PM EDT Body Mass Index 28.12 02/19/2023 3:27 PM EDT Plan of Treatment Health Maintenance Due Date Last Done Comments Dental Oral Exam 1980 Dental Prophylaxis 1980 Dental X-Ray: Bitewings 1980 Dental X-Ray: Full Mouth 1980 Depression Screening 1980 HIV Screening 1980 Lipid Panel 1980 Alcohol/Substance Use Screening 1992 Family Planning (PISQ) 1995 DTaP/Tdap/Td Vaccines (1 - Tdap) 1999 Hepatitis B Vaccines (1 of 3 - 19+ 3-dose series) 1999 SDOH Screening 02/19/2024 02/18/2023 COVID-19 Vaccine (1 - 2023-2 5 season) 2024 Influenza Vaccine (#1) 2024 Tobacco Screening 09/23/2024 09/24/2023 Zoster Vaccines (1 of 2) 2030 RSV Patients and Patients Aged 60 years or older (1 - 1-dose 75+ series) 2055 Pneumococcal Vaccine: Pediatrics (0 to 5 Years) and At-Risk Patients (6 to 49) Years) Aged Out 10/01/2015, 10/01/2015 No longer eligible based on patient's age to complete this topic HIB Vaccines Aged Out No longer eligi ble based on patient's age to complete this topic HPV Vaccines Aged Out No longer eligi ble based on patient's age to complete this topic Hepatitis A Vaccines Aged Out No long er eligible based on patient's age to complete this topic IPV Vaccines Aged Out No longer eligi ble based on patient's age to complete this topic Meningococcal Vaccine Aged Out No [place] par[place] eligible based on patient's age to complete this topic RSV under 20 months Aged Out No longe r eligible based on patient's age to complete this topic Rotavirus Vaccines Aged Out No longer eligible based on patient's age to complete this topic Procedures Procedure Name Priority Date/Time Associated Diagnosis Comments XR LUMBAR SPINE 2-3 VIEWS Routine 07/27/2024 5:54 PM EST from Last 3 Months Results * XR Lumbar Spine 2-3 Views (07/27/2024 5:54 PM EST) Anatomical Region Laterality Modality Spine, L-spine Radiographic Amanda ging 07/27/2024 5:54 PM EST Narrative 07/27/2024 5:55 PM EST ? [facility] ?[address] ?[place] [address] ?XRay Report ? Signed ? Patient: Zaki Philip ?MR#: [id number] ? : 1980 ?Acct:[id number] ? Age/Sex: 44 / M ?ADM Date: 07/27/24 ? Loc: HO.ED ? Attending Dr: ? Ordering Physician: Scarlett Son ?? Date of Service: 07/27/24 ?? Procedure(s): XR lumbar spine 2-3V ?? Accession Number(s): [id number] ? cc: [facility]; Scarlett Son ? CLINICAL HISTORY: pain ? 3 views lumbar spine ? Comparison: None ? Findings: ?? Normal vertebral body alignment. ?? No acute fractures or dislocation. ?? No significant degenerative change. ?? Moderate stool in the ascending colon. ? IMPRESSION: ?? No acute findings. ? This document has been electronically signed by: Paz Morales MD on ?? 07/27/2024 17:54:29 ? Dictated By: ?Paz Morales MD ? Signed By: ?<Electronically signed by Paz Morales MD in OV> ? 07/27/24 1755 ? DD/ 175 ? TD/TT: 07/27/24 175 ? [employer] Consultant: ? Procedure Note Sonia Wallace - 07/27/[address] [address] XRay Report Signed Patient: CedrickZaki R#: [id number] : 1980Acct:[id number] Age/Sex: 44 / MADM Date: 07/27/24 Loc: HO.ED Attending Dr: Ordering Physician: cSarlett Son Date of Service: 07/27/24 Procedure(s): XR lumbar spine 2-3V Accession Number(s): [id number] cc: [facility]; Scarlett Son CLINICAL HISTORY: pain 3 views lumbar spine Comparison: None Findings: Normal vertebral body alignment. No acute fractures or dislocation. No significant degenerative change. Moderate stool in the ascending colon. IMPRESSION: No acute findings. This document has been electronically signed by: Paz Morales MD on 07/27/2024 17:54:29 Dictated By: Paz Morales MD Signed By: <Electronically signed by Paz Morales MD in OV> 07/27/241754 DD/ 53 TD/TT: 07/27/241753 [employer] Acquis[employer] Consultant: [facility] External Provider IMG XR PROCEDURES Final Result from Last 3 Months Insurance [facility] [place] ST[place] AD[place]
--- NOTE | 2024-09-19 21:29 | ED_ITS ---
HPI - Overdose General Chief Complaint: Overdose Stated Complaint: overdose Time Seen by Provider: 09/19/24 21:10 Source: patient, EMS, RN notes reviewed and old records reviewed Mode of arrival: EMS History of Present Illness ED Provider: Violeta Beltran PA-C [facility] Narrative: 44-year-old male with a past medical history of substance abuse presenting to the ED via EMS s/p being found unresponsive, on EMS arrival patient was receiving CPR by bystanders, patient was given 8 mg of intranasal Narcan with positive result. Patient denies EtOH or illicit substance use. States he had a seizure, reports history of seizures, states he did not take as prescribed medications today as he was feeling depressed. Denies SI/HI. Denies injury, trauma or fall. Patient uncooperative with history and physical. Agitated. Related Data Previous Rx's ?Medication ?Instructions ?Recorded doxycycline hyclate 100 mg tablet 100 mg PO BID #20 tabs 03/08/21 cephalexin 500 mg capsule 500 mg PO QID 7 days #28 caps 01/26/24 doxycycline hyclate 100 mg capsule 100 mg PO BID 7 days #14 caps 01/26/24 cyclobenzaprine 10 mg tablet 10 mg PO TID PRN muscle spasm #14 04/03/24 tabs cephalexin 500 mg capsule 500 mg PO QID #28 caps 05/28/24 sulfamethoxazole 800 1 tab PO BID #14 tabs 05/28/24 mg-trimethoprim 160 mg tablet (Bactrim DS) cyclobenzaprine 10 mg tablet 10 mg PO TID PRN muscle spasm #14 07/27/24 tabs lidocaine 5 % topical patch 1 patch topical DAILY #15 ea 07/27/24 (Lidoderm) Allergies Allergy/AdvReac Type Severity Reaction Status Date / Time No Known Allergies Allergy Verified 09/19/24 21:07 Review of Systems Review of Systems: Yes all other systems are reviewed and are negative Constitutional: Constitutional: Reports as per [facility] Past Medical History Attestation statement: The following information was validated with the patient. Source: old records reviewed Medical History Drug abuse Social History Social History Patient Tobacco Use Status: Current someday Tobacco user Substance Use Type: Crack/Cocaine Advance Directives: No Advance Directives Information Provided: No Physical Exam Vital Signs: Vital Signs: Last Vital Signs Temp 0 F L 09/19/24 21:40 Pulse 0 L 09/19/24 21:40 Resp 0 L 09/19/24 21:40 BP 0/0 L 09/19/24 21:40 Pulse Ox 0 L 09/19/24 21:40 BMI result Body Mass Index 31.2 Const: General: cooperative and no acute distress Orientation/consciousness: patient oriented x3 HEENT: Head: Yes normal to inspection and Yes atraumatic Ears: hearing grossly normal bilaterally General nose exam: Normal external nose present Face and sinus: Yes normal facial exam Eyes: General: appearance normal, both eyes and all related structures EOM: EOMs intact bilaterally Neck: Neck: Yes normal visual inspection and Yes no meningeal signs Resp: Effort & Inspection: normal respiratory effort and no respiratory distress Cardio: Rate: regular rate Skin: Rashes: no rashes Wounds: no wounds Neuro: General: patient oriented x3, gait normal, tone normal, moves all extremities, no meningeal signs and CN's II-XI intact bilaterally Cranial nerves: Yes CN's II-XII intact bilaterally Gait exam (Neuro): Normal gait present Extrem: General: Yes normal to inspection Psych: Thought content: suicidality and no homicidality Course Course Course Narrative: 2137--patient's partner here to pick him up from the ED. Sober ride. States he has Narcan at home, additional Narcan supplied Results discussed with patient including worrisome signs and symptoms and strict return precautions, and when to return to the emergency department. They verbalized understanding and feel safe for discharge at this time. Medications Administered Discontinued Medications Generic Name Dose Route Start Last Admin Trade Name Freq PRN Reason Stop Dose Admin Naloxone HCl 8 mg 09/19/24 21:21 09/19/24 21:42 Naloxone Hcl Nasal Take Home 4 Mg [place] NOSTRILALT 09/19/24 21:22 Not Given ONCE ONE Medical Decision Making Medical Decision Making MDM Narrative: 44-year-old male with a past medical history of substance abuse presenting to the ED via EMS s/p being found unresponsive, on EMS arrival patient was receiving CPR by bystanders, patient was given 8 mg of intranasal Narcan with positive result. Patient denies EtOH or illicit substance use. States he had a seizure, reports history of seizures, states he did not take as prescribed medications today as he was feeling depressed. On exam pacing around emergency department, agitated, wanting to leave, threatening staff, persistently denies substance use. Denies complaints at present. Denies SI/HI. Refusing vitals and exam. Concern for overdose vs ? Seizure. No appreciable trauma on overt exam. Ambulating with steady gait. Patient called sober ride who was on their way. Will be discharged with Narcan to go home. Please refer to course for remaining clinical decision making, interpretation of labs/imaging results, and discussions with consultants and/or family members. Differential Diagnosis Differential Diagnoses: The differential diagnosis associated with the presentation includes As above Independent Historian Clinical information obtained from an independent historian. History obtained from or confirmed by: EMS External Record Review External record reviewed: Inpatient record, Office record, Outpatient record, Prior outpatient labs, Prior outpatient radiology, Primary care record and Outside ED record Tests considered The following testing was considered but not selected: As above Social Determinants Patient?s care significantly limited by Social Determinants of Health including: Inadequate housing, Low income, Alcoholism and drug addiction in family, Problems related to primary support group, Unemployment and Other Social Determinant of Health Discharge Plan Discharge Clinical Impression: Drug overdose Patient Disposition: Home, Self-Care Instructions: Adult Overdose (ED) Additional Instructions: Overdose You were seen in our Emergency Department for an overdose today. You received narcan in order to reverse the effects of overdose. Narcan only lasts about 45 min to 1 hour in the system. You may have been given narcan to take home with you today, please keep it near you if you are going to use again, so others can use it if needed.? The number one risk for fatal overdose is using alone? [facility] is a 28/01 hotline where you can be on the phone with someone while you use, and they can call for help if they suspect an overdose: [phone] Things to look out for when you leave include severe vomiting or diarrhea, headaches, muscle cramps, fever, coughing, chest pain, or if you feel so short of breath you cannot walk to the bathroom. Please seek care and return any time for worsening symptoms.? You may have been provided with safer injection?items, please take time to take care of YOU and your health. Use new supplies whenever possible to lessen the chances of infections and other illnesses.? If you need more supplies, please go [facility],? [address] [place], [place] you can call or text to coordinate delivery of safer supplies. If you decide you want to stop or cut down on how much you?re using, please call the numbers on the list provided to you or you can come to our outpatient Addiction Treatment office [facility] (M-F 9am-5p) [address] [place] [address], [address] [place], [place]. [phone] Prescriptions: No Action doxycycline hyclate 100 mg tablet 100 mg PO BID Qty: 20 0RF cyclobenzaprine 10 mg tablet 10 mg PO TID PRN (Reason: muscle spasm) Qty: 14 0RF doxycycline hyclate 100 mg capsule 100 mg PO BID 7 Days Qty: 14 0RF cephalexin 500 mg capsule 500 mg PO QID 7 Days Qty: 28 0RF cephalexin 500 mg capsule 500 mg PO QID Qty: 28 0RF sulfamethoxazole-trimethoprim [Bactrim DS] 800-160 mg tablet 1 tab PO BID Qty: 14 0RF lidocaine [Lidoderm] 5 % adhesive patch,medicated 1 patch topical DAILY Qty: 15 0RF Rx Instructions: leave on most painful area for up to 12 hrs cyclobenzaprine 10 mg tablet 10 mg PO TID PRN (Reason: muscle spasm) Qty: 14 0RF Referrals: [facility] [Provider Group] [facility] [place] [facility] [Provider Group] Interventions: ED Discharge Assessment Last Done: 09/19/24 21:40 Discharge Date/Time: 09/19/24 21:42 Print Language: Amharic
[2024-09-19 21:40] VITALS: BP 0/0; PULSE 0; RESP 0; TEMP -17.7; TEMP 0; O2SAT 0
== END 2024-09-19 21:42 | disposition home or self-care (01) ==
PROVIDERS: Emergency Provider Emergency Medicine
DX: T50.901A Poisoning by unspecified drugs, medicaments and biological substances, accidental (unintentional), initial encounter (principal); R40.4 Transient alteration of awareness; Y92.9 Unspecified place or not applicable; F19.10 Other psychoactive substance abuse, uncomplicated; R45.1 Restlessness and agitation; F32.A Depression, unspecified
CPT/HCPCS: 99283